=== PATIENT | female | born 1975 | race Caucasian/White ===

== ENCOUNTER 2019-09-01 07:55 | Day surgery (SDC) ==
--- NOTE | 2019-08-27 15:12 | EKG Report ---
Test Performed on : 08/27/2019 3:06:08 PM Test Reason : PAT Blood Pressure : / mmHG Vent. Rate : 054 BPM Atrial Rate : 054 BPM P-R Int : 176 ms QRS Dur : 090 ms QT Int : 440 ms P-R-T Axes : 056 065 070 degrees QTc Int : 417 ms Sinus bradycardia. Otherwise normal ECG When compared with ECG of 28-OCT-2017 14:58, No significant change was found Unconfirmed Result
[2019-08-27 15:35] LABS: BASO# 0.03 X1000 (0.0-0.2); BASO% 0.4 % (0.0-0.8); EOS# 0.09 X1000 (0.0-0.7); EOS% 1.1 % (0.0-10.0); HEMATOCRIT 43.4 % (37.0-47.0); HEMOGLOBIN 14.3 g/dL (12.0-16.0); LYMPH# 3.03 X1000 (1.2-3.4); LYMPH% 36.6 % (20.5-51.1); MCH 29.3 PG (27-31); MCHC 32.9 g/dL (33-37); MCV 88.9 FL (81-99); MONO# 0.51 X1000 (0.11-0.59); MONO% 6.2 % (1.7-9.3); MPV 12.3 FL (7.4-10.4); NEUT# 4.63 X1000 (1.4-6.5); NEUT% 55.7 % (42.2-75.2); PLT 166 X1000 (130-400); RBC 4.88 XMIL (4.2-5.4); WBC 8.29 X1000 (4.8-10.8)
[2019-08-27 15:58] LABS: AGAP 14; BUN 23 mg/dL (8-22); CALCIUM 10.2 mg/dL (8.8-10.2); CHLORIDE 99 mmol/L (98-107); COSMO 275; CREATININE 0.8 mg/dL (0.5-0.9); ESTIMATED GFR > 60; GLUCOSE 84 mg/dL (70-104); POTASSIUM 3.6 mmol/L (3.5-5.1); SODIUM 136 mmol/L (136-145); TCO2 23 mmol/L (25-35)
--- NOTE | 2019-08-31 15:18 | HISTORY AND PHYSICAL ---
HISTORY: The patient is a 43-year-old female who was referred initially by Dr. Agueda Gandhi. The patient was struggling with leaking urine with any coughing and sneezing, as well as having frequency and hesitancy at times. She was also having coital incontinence and positional incontinence. She was having intermittent rectal pain periodically; however, everything was getting worse. She was not having any fecal incontinence. On evaluation, she was found to have POP-Q stage II prolapse with the leading edge at AA +1; however, point C was -7 with a TVL of 10. The stress incontinence was felt to be related to some reverse kinking of the urethra. We discussed the need of surgical correction at length and she is understanding. However, because of her young age, busy lifestyle, and incontinence, wanting to proceed with the best long-term cure. The risks and benefits of sacrocolpopexy and mid-urethral sling were explained at length. She understands and is wishing to proceed with surgical intervention. PAST MEDICAL HISTORY: Positive for hypertension, diabetes, hypercholesterolemia, hemorrhoids, and kidney stones. PAST SURGICAL HISTORY: Positive for breast augmentation, laparoscopic-assisted vaginal hysterectomy for prolapse, lithotripsy, tonsillectomy, bilateral tubal ligation, and abdominoplasty. OB HISTORY: She is noted to be a para 4-0-0-4. ALLERGIES: None. CURRENT MEDICATIONS: Ziac, Lovaza 1 g, and p.r.n. medications. SOCIAL HISTORY: Positive for tobacco, 1 pack per day use. Negative ETOH or drugs. FAMILY HISTORY: Noncontributory. PHYSICAL EXAMINATION: GENERAL: BMI is 21. HEENT: Normocephalic, atraumatic. PERRLA. EOMI. No thyromegaly. CV: Regular rate and rhythm without murmur, gallop, rub. PULMONARY: Clear to auscultation and percussion. ABDOMEN: Soft. : Shows POP-Q stage II prolapse, AA +1, point C is -7, TVL is 10, AP is -1, GH is 6, and PB is 4. NEUROLOGIC: Afocal. EXTREMITIES: Without clubbing, cyanosis, or edema. ASSESSMENT AND PLAN: The patient is admitted at this time for robotic abdominal sacrocolpopexy with mid-urethral sling using Obtryx. The risks and benefits were discussed at length. She understands and is wishing to proceed. cc: Thomas Browne MD
[2019-09-01] MEDS ORDERED: ROBINUL ONE ×2 (08:17→09:06)
[2019-09-01] MEDS ORDERED: DIPRIVAN 1% ONE (08:17)
[2019-09-01] MEDS ORDERED: XYLOCAINE-MPF 2% ONE (08:17)
[2019-09-01] MEDS ORDERED: FENTANYL ONE (08:17)
[2019-09-01] MEDS ORDERED: QUELICIN (DOSE) ONE (08:18)
[2019-09-01] MEDS ORDERED: ZEMURON ONE (08:18)
[2019-09-01] MEDS ORDERED: LR 1,000 ML ONE ×3 (08:52→13:27)
[2019-09-01] MEDS ORDERED: KEFZOL 1 GM/D5W 2 GM/100 ML IVPB ONE (08:52)
[2019-09-01] MEDS ORDERED: MARCAINE 0.25% PF ONE (08:53)
[2019-09-01] MEDS ORDERED: D10W 1,000 ML ONE (08:53)
[2019-09-01] MEDS ORDERED: REGLAN ONE (09:06)
[2019-09-01] MEDS ORDERED: PEPCID ONE (09:06)
--- NOTE | 2019-09-01 10:21 | H&P REVIEW ---
H&P Update H&P Review: H&P was reviewed and patient was examined, No change has occurred in the patient's condition
[2019-09-01] MEDS ORDERED: DILAUDID ONE (11:16)
[2019-09-01] MEDS ORDERED: TORADOL ONE (11:32)
[2019-09-01] MEDS ORDERED: LASIX ONE (11:32)
[2019-09-01 12:20] LABS: URINE SOURCE CATH
[2019-09-01 12:25] LABS: BILIRUBIN URINE NEGATIVE (NEGATIVE); BLOOD URINE NEGATIVE (NEGATIVE); COLOR YELLOW; GLUCOSE URINE NEGATIVE (NEGATIVE); KETONE URINE NEGATIVE (NEGATIVE); LEUKOCYTES URINE NEGATIVE (NEGATIVE); NITRITE URINE NEGATIVE (NEGATIVE); PROTEIN URINE NEGATIVE (NEGATIVE); SP GRAVITY URINE 1.023; TURBIDITY URINE CLEAR (CLEAR); UROBILINOGEN URINE NORMAL (NORMAL)
[2019-09-01 12:27] LABS: UR EPITHELIAL CELLS <10 /HPF (<10); URINE BACTERIA NEGATIVE /HPF; URINE RBC <10 /HPF (<10); URINE WBC <10 /HPF (<10)
[2019-09-01] MEDS ORDERED: BRIDION ONE (12:32)
[2019-09-01] MEDS ORDERED: ZOFRAN ODT PO PRN (13:43)
[2019-09-01] MEDS: LR 1,000 ML IV SCH ×2 (15:18→21:54)
[2019-09-01] MEDS: TORADOL IV SCH ×2 (15:25→21:56)
[2019-09-01] MEDS: NORCO-5 PO PRN ×2 (17:03→22:19)
--- NOTE | 2019-09-01 19:28 | PROGRESS NOTE ---
DATE: 09/01/2019 SUBJECTIVE: Patient is alert oriented x3. She is lying in bed and her is in the room with her. OBJECTIVE: Afebrile. Vital signs are stable. Urine output is adequate. ASSESSMENT/PLAN: We discussed postoperative care with the patient. I also discussed with the patient and her our operative findings and explained at length what was performed. She will be discharged home tomorrow after completion of her voiding trial assuming that her postoperative care through the evening is satisfactory. cc: Thomas Browne MD
--- NOTE | 2019-09-01 20:46 | OPERATIVE NOTE ---
PROCEDURE DATE: 09/01/2019 PREOPERATIVE DIAGNOSIS: Symptomatic pelvic organ prolapse. POSTOPERATIVE DIAGNOSIS: Symptomatic pelvic organ prolapse. PROCEDURE: Da Shivani abdominal sacrocolpopexy and midurethral sling with Obtryx. SURGEON: Thomas Browne MD. ANESTHESIA: General. ESTIMATED BLOOD LOSS: 50 mL. HISTORY: The patient is a 43-year-old, multigravida patient, with a history of prior hysterectomy for pelvic organ prolapse, who was having worsening incontinence and symptomatic prolapse symptoms of pressure and low back pain, as well as her incontinence. She wished to proceed to surgical intervention, refusing pessary management. OPERATIVE FINDINGS: POP-Q stage III prolapse. The leading edge was BA at +2. OPERATIVE PROCEDURE: Patient was taken to the operating room and placed in supine position. After adequate general anesthesia obtained, she was placed in the [facility] [place]. Her abdomen and vagina was prepped and draped in the usual fashion. Her prior abdominoplasty made an umbilical incision somewhat perilous, so decision was made to proceed with an infraumbilical incision. This area was initially injected with 0.25% Marcaine and then an incision was made, 12 mm port and sheath were placed through this incision into the abdominal cavity, and pelvic contents were visualized. Therefore, insufflation with CO2 to an intra-abdominal pressure of 14 was performed. Left-sided ports were placed in the typical positions after infiltration of 0.25% Marcaine and under direct visualization. The right-sided ports were again placed in the typical positions for sacrocolpopexy, after infiltration with 0.25% Marcaine and under direct visualization of the laparoscope. After completion of this, the patient was placed in the deep Trendelenburg position. Orosco catheter was placed. EEA sizers were placed within the vagina and the rectum. At this time, the robot was docked in the usual fashion. Hot scissors in the right hand, Bipolar PK was in the left, and Cadiere grasper was in the third arm. We initially started with our dissection at the vaginal apex. There were a few filmy adhesions of small bowel, but these were easily taken down. Starting with our dissection actually slightly on the rectal side of the vaginal apex, we were able to easily develop the vesicovaginal space and we continued with our dissection for approximately 8 to 10 cm. We then turned our attention towards the posterior compartment, developed the rectovaginal space without difficulty using the EEA sizers to open that space up. At this time, we then went up to the sacral promontory. We used the third arm to deviate the descending and sigmoid colon laterally, exposing the sacral promontory. We elevated the peritoneum off the promontory, opened this site with a peritoneal incision, and were easily able to dissect down to the anterior longitudinal ligament. We then created our tunnel going down to our prior rectovaginal dissection. Ureter was well out of the operative site as was the colon medially. At this time, we trimmed the mesh in the usual fashion and placed the mesh intra- abdominally. Starting on the vesicovaginal side, we secured the anterior mesh to the vagina with approximately 12 sutures. All sutures were 2.[address] sutures, and all sutures were thrown with initial surgeon's throw and 4 half throws after this. We then went to the rectovaginal space and again secured the mesh in the rectovaginal area using again, approximately 8 to 10 sutures tied with the same knot arrangement. The third arm was brought up to the sacral promontory and 3 sutures were placed through the third arm into the anterior longitudinal ligament and secured. Excessive mesh was then trimmed and removed. The patient was noted to be somewhat oozy because of her young age, especially in the peritoneal dissection that had been performed laterally to recover the mesh. We took a few minutes extra here to provide hemostasis into those areas using electrocautery. We then introduced a V-Loc suture and re-peritonealized starting at the sacral promontory, going down to the Y portion of the mesh, and then pursestring closing anteriorly and posteriorly so that we had complete covering of the mesh. This was easily done and this helped with hemostasis. Copious amounts of irrigation was performed and we dropped our pressures down to approximately 5 with marked hemostasis observed at this point. No other abnormalities were noted, so decision was made to terminate this portion of the procedure. The robot was undocked in the usual fashion, and then we used a Shailesh-Stacy closure system to reapproximate the fascia and deep layers of both the virtual assistant for advertisers's port and the camera port using a 0 Vicryl ligature. After completion of this, abdomen was deflated of CO2 as all remaining ports were removed and nursing services closed all skin incisions with 4.0 Vicryl ligature in a subcuticular fashion. We then went below vaginally and examined all of the work that we had performed. We had excellent apical anterior and posterior support. At this time, decision was made to proceed with placement of the midurethral sling. We grasped the urethra proximally and distally, and injected another 8 to 10 mL of the same local anesthetic. A sagittal incision was then made and Metzenbaum scissors were utilized to dissect up to the ischial pubic ramus on each side. Based on the bony landmark of the ramus, as well as the insertion of the adductor longus, a stab incision was initially made on the left-hand side. The halo device was introduced through this incision, through the obturator canal, to the rotary kiln operator's finger, which directed the needle out. The mesh was attached to it and it was retracted back through the skin. This was performed on the contralateral side in a similar fashion. The Orosco catheter had already been removed from the bladder we did a systematic evaluation of the bladder. We noted no evidence of any suture material. No evidence of any abnormalities. Both ureters were found to be effluxing clear urine. Urethra was found to be within normal limits. Cystoscope was removed and a Jayda clamp was placed in the midurethral position. The tape was brought up to the Jayda clamp. The blue tag was excised and the sheaths were easily removed. There was no tension on the mesh whatsoever of the sling. Midurethral incision was closed with a running 2.0 Vicryl ligature. Sponge counts, instrument counts, needle counts correct at this time. No abnormalities were noted. Orosco catheter was replaced. Rectal examination was performed. No abnormalities were noted. The patient was taken out of low adjustable stirrups. She was awakened, taken to recovery room with vital signs stable. cc: Thomas Browne MD
[2019-09-01] MEDS ORDERED: COLACE PO SCH (21:00)
[2019-09-01] MEDS ORDERED: PERIDEX MT SCH (21:00)
[2019-09-02 04:46] VITALS: BP 103/55
[2019-09-02] MEDS: TORADOL IV SCH (05:00)
[2019-09-02] MEDS: LR 1,000 ML IV SCH (06:40)
[2019-09-02] MEDS ORDERED: FLU VACCINE IM ONE (07:26)
[2019-09-02] MEDS ORDERED: PNEUMOVAX 23 IM ONE (07:30)
[2019-09-02] MEDS: NORCO-5 PO PRN (07:42)
[2019-09-02] MEDS ORDERED: ZIAC 10/6.25 MG PO SCH (09:00)
--- NOTE | 2019-09-03 08:33 | DISCHARGE SUMMARY ---
ADMISSION DATE: 09/01/2019 DISCHARGE DATE: 09/02/2019 PRINCIPAL DIAGNOSIS: Pelvic organ prolapse. PROCEDURE: Da Shivani abdominal sacrocolpopexy and mid urethral sling with Obtryx. HISTORY: The patient is a 43-year-old female, who is having worsening symptomatic pelvic organ prolapse. She was admitted for surgical intervention. HOSPITAL COURSE: The patient underwent the above-stated procedure. Blood loss at time was approximately 50 mL. Postoperative course has been uncomplicated. She is currently undergoing voiding trial, and will be discharged home with instructions to follow up in 3 weeks. DISCHARGE MEDICATIONS: [place], Toradol and Colace. DISCHARGE DISPOSITION: She was instructed in regular diet and decreased activity. cc: Thomas Browne MD
== END 2019-09-02 07:49 | disposition home or self-care (01) ==
LOC: OPS 07:55 → 4N 07:55 → OPS 09-02 07:49
PROVIDERS: ATTEND Obstetrics & Gynecology